=== PATIENT | female | born 1980 | race Caucasian/White ===

== ENCOUNTER 2016-12-19 10:07 | Observation (INO) | payer SELFPAY ==
[2016-12-19 10:23] VITALS: TEMP 98.3
[2016-12-19] MEDS ORDERED: Naloxone 0.4 mg/ml Inj (Adult) IVP ONE (10:35)
--- NOTE | 2016-12-19 10:43 | ED PDOC ---
HPI: Psych/Substance Abuse Time Seen by Provider: 12/19/16 10:09 Chief Complaint (Nursing): Substance Abuse Chief Complaint (Provider): Substance abuse History Per: Patient Additional Complaint(s): 36 yo female, no PMH, presents to ED for evaluation of substance abuse and vomiting. Pt walking into ED slowly, drowsy, admits to using 2 bags of heroin. Past Medical History Reviewed: Nursing Documentation, Vital Signs, Unable To Obtain Vital Signs: Last Vital Signs Temp 98.3 F 12/19/16 10:20 Pulse 97 H 12/19/16 10:20 Resp 17 12/19/16 10:20 BP 125/89 12/19/16 10:20 Pulse Ox 97 12/19/16 10:20 - Medical History PMH: No Chronic Diseases - Family History Family History: States: Unknown Family Hx - Social History Drugs: Cocaine - Immunization History Hx Tetanus Toxoid Vaccination: No Hx Influenza Vaccination: No Hx Pneumococcal Vaccination: No - Allergies Allergies/Adverse Reactions: Allergies Allergy/AdvReac Type Severity Reaction Status Date / Time No Known Allergies Allergy Verified 12/19/16 10:20 Review of Systems ROS Statement: Except As Marked, All Systems Reviewed And Found Negative Physical Exam - Reviewed Nursing Documentation Reviewed: Yes Vital Signs Reviewed: Yes - Physical Exam Appears: Positive for: Well, Non-toxic, No Acute Distress Head Exam: Positive for: ATRAUMATIC, NORMAL INSPECTION, NORMOCEPHALIC Skin: Positive for: Normal Color, Warm, DRY Eye Exam: Positive for: EOMI, Normal appearance, PERRL ENT: Positive for: Normal ENT Inspection Neck: Positive for: Normal, Painless ROM Cardiovascular/Chest: Positive for: Regular Rate, Rhythm Respiratory: Positive for: CNT, Normal Breath Sounds Gastrointestinal/Abdominal: Positive for: Normal Exam, Bowel Sounds, Soft Back: Positive for: Normal Inspection Extremity: Positive for: Normal ROM Neurologic/Psych: Positive for: Alert, Oriented - Laboratory Results Result Diagrams: 12/19/16 11:06 12/19/16 11:06 - ECG O2 Sat by Pulse Oximetry: 97 Medical Decision Making Medical Decision Making: EKG NSR at 94 bpm, no acute St changes, as read by A[place] IV access established and treatment initiated with IVF Pt on vp customer service, vitals remain stable pt arousable to vertabl stimuli in ED Pt remains asleep in ED, checked multiple times while in ED, remains arousable 1900: Pt awake and alert, talking to boyfirend at bedside. Disposition - Clinical Impression Clinical Impression: Substance abuse - Patient ED Disposition Is Patient to be Admitted: No - Disposition Disposition: Routine/Home Disposition Time: 19:26 Condition: STABLE Instructions: Polysubstance Abuse (ED) - POA Present On Arrival: None
[2016-12-19 11:18] LABS: BASO # 0.1 K/uL (0.0-0.2); BASO % 0.8 % (0.0-2.0); EOS # 0.2 K/uL (0.0-0.7); EOS % 1.1 % (0.0-4.0); LYMPH # 1.6 K/uL (1.0-4.3); LYMPH % 10.3 % (20.0-40.0); MEAN CELL VOLUME 86.4 fl (81.0-99.0); MEAN CORPUSCULAR HEMOGLOBIN 29.3 pg (27.0-31.0); MEAN CORPUSCULAR HGB CONC 33.9 g/dL (33.0-37.0); MEAN PLATELET VOLUME 7.2 fl (7.2-11.7); MONO # 1.3 K/uL (0.0-0.8); MONO % 8.3 % (0.0-10.0); NEUT # 12.4 K/uL (1.8-7.0); NEUT % 79.5 % (50.0-75.0); RBC 5.11 Mil/uL (3.80-5.20); RED CELL DISTRIBUTION WIDTH 12.8 % (11.5-14.5); WHITE BLOOD COUNT 15.7 K/uL (4.8-10.8)
[2016-12-19 11:22] LABS: ALB/GLOB RATIO 0.8 (1.0-2.1); ALBUMIN 4.2 g/dL (3.5-5.0); ALT/SGPT 157 U/L (9-52); AST/SGOT 105 U/L (14-36); BLOOD UREA NITROGEN 12 mg/dl (7-17); CALCIUM 9.3 mg/dL (8.4-10.2); GFR AFRICAN-AMERICAN > 60; GFR NON-AFRICAN AMERICAN > 60; SALICYLATE < 1.0 mg/dl
[2016-12-19 11:29] LABS: ACETAMINOPHEN < 10.0 ug/ml (10.0-30.0)
[2016-12-19] MEDS ORDERED: Sodium Chloride 0.9% 1,000 ML IV STA (14:52)
--- NOTE | 2016-12-19 15:33 | RAD ---
HISTORY: med screening COMPARISON: None available. TECHNIQUE: Chest, one view. FINDINGS: LUNGS: No focal consolidation. Please note that chest x-ray has limited sensitivity for the detection of pulmonary masses. PLEURA: No significant pleural effusion identified. No definite pneumothorax . CARDIOVASCULAR: Heart size appears within normal limits. OSSEOUS STRUCTURES: No acute osseous abnormality identified. VISUALIZED UPPER ABDOMEN: Unremarkable. OTHER FINDINGS: None. IMPRESSION: No focal consolidation, significant pleural effusion, or definite pneumothorax identified.
[2016-12-19 19:34] VITALS: RESP 18
[2016-12-19 19:35] VITALS: BP 129/83; PULSE 82; O2SAT 100
[2016-12-19 22:31] LABS: BARBITURATES, UR NEGATIVE (NEGATIVE); BENZODIAZEPINES, UR POSITIVE (NEGATIVE); OPIATES, UR POSITIVE (NEGATIVE); PHENCYCLIDINE, UR NEGATIVE (NEGATIVE)
--- NOTE | 2016-12-20 11:38 | CARD ---
APPROVED REPORT EKG Measurement Heart [id number] <Conclusion> Normal sinus rhythm Normal ECG
== END 2016-12-19 19:00 | disposition home or self-care (01) ==
LOC: H.ER 10:07 → H.EROBSV 10:54
PROVIDERS: ADMIT Emergency Medicine; ATTEND Emergency Medicine
DX: F11.10 Opioid abuse, uncomplicated (principal)
CPT/HCPCS: 71010; 80053; 81025; 82948; 84703; 85025; 93005; 96360; 99281; G0378; G0480; J7040

== ENCOUNTER 2017-02-09 09:24 | Emergency (ER) | payer MEDICAID, OTHER ==
[2017-02-09] MEDS ORDERED: Sodium Chloride 0.9% 1,000 ML IV STA (09:57)
[2017-02-09] MEDS ORDERED: Piperacillin/Tazobact 4.5 GM in Sodium Chloride 0.9% 100 ML IVPB SCH (10:00)
[2017-02-09 10:29] LABS: BASO % 0.5 % (0.0-2.0); EOS # 0.1 K/uL (0.0-0.7); EOS % 2.4 % (0.0-4.0); HEMATOCRIT 40.5 % (34.0-47.0); LYMPH # 1.6 K/uL (1.0-4.3); LYMPH % 25.7 % (20.0-40.0); MEAN CELL VOLUME 85.5 fl (81.0-99.0); MEAN CORPUSCULAR HEMOGLOBIN 29.5 pg (27.0-31.0); MEAN CORPUSCULAR HGB CONC 34.5 g/dL (33.0-37.0); MEAN PLATELET VOLUME 6.9 fl (7.2-11.7); MONO # 0.5 K/uL (0.0-0.8); MONO % 8.7 % (0.0-10.0); NEUT # 3.9 K/uL (1.8-7.0); NEUT % 62.7 % (50.0-75.0); RED CELL DISTRIBUTION WIDTH 12.6 % (11.5-14.5)
[2017-02-09 10:36] LABS: BLOOD UREA NITROGEN 14 mg/dl (7-17); CALCIUM 9.2 mg/dL (8.4-10.2); CARBON DIOXIDE 29 mmol/L (22-30); CHLORIDE 97 mmol/L (98-107); GFR AFRICAN-AMERICAN > 60; GLUCOSE,RANDOM 347 mg/dL (65-105); POTASSIUM 3.9 MMOL/L (3.6-5.0); SODIUM 136 mmol/l (132-148)
[2017-02-09 10:41] LABS: WHITE BLOOD COUNT 6.2 K/uL (4.8-10.8)
--- NOTE | 2017-02-09 11:00 | ED PDOC ---
HPI: Dental Pain/Injury Time Seen by Provider: 02/09/17 09:41 Chief Complaint (Nursing): Abnormal Skin Integrity Chief Complaint (Provider): right facial / pain/ edema History Per: Patient History/Exam Limitations: no limitations Current Symptoms Are (Timing): Still Present Additional Complaint(s): 36yo female c/o right lower facial pain and mild edema likely from dental pain for last several days. Denies fever, pain under tongue, weakness or trouble swallowing. Also has hx DM, states sugars have been elevated lately. Past Medical History Reviewed: Historical Data, Nursing Documentation, Vital Signs Vital Signs: Last Vital Signs Temp 97.5 F L 02/09/17 09:38 Pulse 96 H 02/09/17 09:38 Resp 16 02/09/17 09:38 BP 125/75 02/09/17 09:38 Pulse Ox 98 02/09/17 09:38 - Medical History PMH: Diabetes Other PMH: substance abuse - Family History Family History: States: Unknown Family Hx - Living Arrangements Living Arrangements: With Family - Social History Current smoker - smoking cessation education provided: Yes Alcohol: Occasional Drugs: Opiates - Immunization History Hx Tetanus Toxoid Vaccination: No Hx Influenza Vaccination: No Hx Pneumococcal Vaccination: No - Home Medications Home Medications: Ambulatory Orders Medication Instructions Recorded Clindamycin [Cleocin] 300 mg PO TID #21 cap 02/09/17 traMADol [Ultram] 50 mg PO TID PRN #12 tab 02/09/17 - Allergies Allergies/Adverse Reactions: Allergies Allergy/AdvReac Type Severity Reaction Status Date / Time ibuprofen [From Motrin] Allergy RASH Verified 02/09/17 09:41 Review of Systems ROS Statement: Except As Marked, All Systems Reviewed And Found Negative Constitutional: Negative for: Fever, Chills ENT: Positive for: Mouth Pain, Mouth Swelling. Negative for: Ear Pain, Nose Pain, Nose Congestion, Throat Pain, Throat Swelling Cardiovascular: Negative for: Chest Pain, Palpitations Respiratory: Negative for: Cough, Shortness of Breath Gastrointestinal: Negative for: Nausea, Vomiting Genitourinary Female: Positive for: Frequency. Negative for: Dysuria Musculoskeletal: Negative for: Neck Pain Skin: Negative for: Rash, Lesions, Jaundice Neurological: Negative for: Weakness, Numbness, Dizziness Physical Exam - Reviewed Nursing Documentation Reviewed: Yes Vital Signs Reviewed: Yes - Physical Exam Appears: Positive for: Well, Non-toxic, No Acute Distress Head Exam: Positive for: ATRAUMATIC, NORMAL INSPECTION, NORMOCEPHALIC Skin: Positive for: Normal Color, Warm, DRY Eye Exam: Positive for: EOMI, Normal appearance, PERRL ENT: Positive for: Other (R facial mild edema at mid body mandible) Neck: Positive for: Normal, Painless ROM Cardiovascular/Chest: Positive for: Regular Rate, Rhythm Respiratory: Positive for: CNT, Normal Breath Sounds Back: Positive for: Normal Inspection Extremity: Positive for: Normal ROM Neurologic/Psych: Positive for: Alert, Oriented - Laboratory Results Result Diagrams: 02/09/17 10:16 02/09/17 10:16 - ECG O2 Sat by Pulse Oximetry: 98 Pulse Ox Interpretation: Normal Medical Decision Making Medical Decision Making: labs to be obtained r.o hyperglycemia Zosyn ordered for dental infection with facial edema Disposition - Clinical Impression Clinical Impression: Abscess, dental, Hyperglycemia - Patient ED Disposition Is Patient to be Admitted: No Counseled Patient/Family Regarding: Studies Performed, Diagnosis, Need For Followup - Disposition Referrals: [facility] [Outside] Disposition: Routine/Home Disposition Time: 12:01 Condition: STABLE Additional Instructions: See dentist as soon as possible for drainage of your dental abscess. Return to ER for any fever, worse mouth pain, inability to open mouth, neck pain or any concern. Take antibiotics as directed. Prescriptions: Clindamycin [Cleocin] 300 mg PO TID #21 cap traMADol [Ultram] 50 mg PO TID PRN #12 tab PRN Reason: Pain, Moderate (4-7) Instructions: Dental Abscess (ED) Forms: [employer] ([employer])
[2017-02-09] MEDS ORDERED: Insulin Regular 100 units/ml IVP ONE (11:01)
[2017-02-09 13:19] VITALS: BP 121/68; PULSE 75; RESP 14; TEMP 98.2
[2017-02-13 12:24] VITALS: O2SAT 98
== END 2017-02-09 13:17 | disposition home or self-care (01) ==
LOC: H.ER 09:24
DX: K04.7 Periapical abscess without sinus (principal); E11.9 Type 2 diabetes mellitus without complications
CPT/HCPCS: 80048; 81025; 82948; 85025; 96374; 99283; J2270; J2543; J7040